=== PATIENT | male | born 1990 | race Hispanic/Latino ===

== ENCOUNTER 2016-10-14 16:19 | Emergency (ER) | payer SELFPAY ==
[~2016-10-14] VITALS: Ht 177.8 cm; Wt 88.6 kg
[2016-10-14 16:40] VITALS: BP 125/64; PULSE 74; RESP 17; O2SAT 98
--- NOTE | 2016-10-14 17:36 | ED.REPORT ---
HPI-Back Pain Under 40 Date of Service Oct 14, 2016 ED Provider: Sydney Jerome History of Present Illness: 25-year-old male here for low back pain. His back has been hurting him for a few months now. It is constant pain nothing seems to make it better or worse. Until today when he was doing lifts at the gym and this made his pain severe. Denies fever. Denies radiation or numbness or tingling. No new activities or exercise regimes Nursing Notes Stated Complaint: BACK INJURY/PAIN Chief Complaint: Back Pain or Injury Nursing Notes Reviewed: Yes Allergies: Coded Allergies: No Known Allergies (Verified Allergy, 12/30/11) Scheduled PRN Cyclobenzaprine (Cyclobenzaprine) 10 Mg Tablet 10 MG PO HS PRN PRN Spasm Ibuprofen (Ibuprofen) 800 Mg Tablet 800 MG PO TID PRN PRN For Pain General Time Seen by MD: 17:30 Chief Complaint Lumbar pain Hx Obtained From: Patient Arrived By: Walk-in Sudden in Onset?: No Onset Occurred: More than a week ago... (2 months) Location: : Spinal lumbar area Severity: Current: Severe Severity: Maximum: Moderate Recent Healthcare: No recent doctor visit Similar Sx Previous: Yes Past Medical History Past Medical History Notes: denies Review of Systems Basic Review of Systems Psychiatric: Normal thought content Constitutional: Denies: Fever Musculoskeletal: Reports: Back pain Physical Exam Initial Vital Signs Vital Signs (First) Date Time Temp Pulse Resp B/P Pulse Ox O2 Delivery O2 Flow Rate FiO2 10/14/16 16:40 36.5 74 17 125/64 98 Room Air Initial VS: Reviewed, Vital signs normal General/Constitutional: Awake, Alert, Well appearing Back: Atraumatic, Inspection NL, Non-tender, No midline vertebral tend, No paraspinal tenderness, No muscle spasm No tenderness of low back. Patient points to bilateral lumbar area when asked for pain is. Straight leg test to 60 before pain inhibits movements. For than limited to about 15 before severe pain. Patient can rotate side to side with pain but without limitation. Patellar rectal reflexes 3+ brisk and intact bilaterally lower extremity strength is intact and strong. Neurologic: Oriented X3, Speech NL, No motor deficits, No sensory deficits Respiratory / Chest: Breath sounds NL, Breath sounds = bilat, No respiratory distress, No rales, No rhonchi, No wheezing Cardiovascular: Heart rate NL, Regular rhythm, Heart sounds NL, Peripheral circulation NL Re-Eval/Medical Decision Med Decision/Clinical Course Discussed low back muscle strain patient and treatment plan for this. Discharge & Departure Shift Change Sign-Out Response to Therapy: Improved Impression: Primary Impression: Low back pain Chronicity: acute Back pain laterality: bilateral Sciatica presence: without sciatica Qualified Code: M54.5 - Low back pain Disposition: Home All VS Reviewed: Yes Condition: Stable Patient Instructions: Low Back Strain (ED) Additional Instructions: Take ibuprofen as directed. Use muscle relaxers at night as needed for severe pain. Use ice and heat alternating applying to affected area at least 3 times a day. Activity as tolerated. No gym activities until pain is greatly improved. Follow up with the PCP for further care. He may want to consider chiropractic or physical therapy. Return if loss of bowel or bladder, severe pain, numbness or tingling in your extremities, or fever. Referrals: [facility] ([facility]) [facility] EDSupervising Provider for APC: Lyndsay Ayoub MD, Linnea K ARNP Oct 14, 2016 17:36
[2016-10-14] MEDS ORDERED: CYCL10TA9 PO (17:58)
[2016-10-14] MEDS ORDERED: IBUP800T28 PO (17:58)
[2016-10-14 18:38] VITALS: BP 126/64; PULSE 60; RESP 18; O2SAT 99
== END 2016-10-14 18:20 | disposition home or self-care (01) ==
LOC: SED 16:19
DX: M54.5 Low back pain (principal)
CPT/HCPCS: 96372; 99283; J1885